=== PATIENT | male | born 1960 | race Two or more races ===

== ENCOUNTER 2023-01-07 21:04 | Emergency (ER) | payer OTHER ==
[~2023-01-07] VITALS: Ht 167.6 cm; Wt 77.0 kg
[2023-01-07] MEDS ORDERED: ACETAMINOPHEN 325MG TABLET PO ONE (21:45)
[2023-01-07] MEDS ORDERED: TETANUS, DIPHTHERIA, PERTUSSIS VAC/PF 0.5ML (>10YR OLD) IM ONE (21:45)
[2023-01-07] MEDS ORDERED: BACITRACIN 15GM TUBE TOP ONE (21:45)
[2023-01-07] MEDS ORDERED: BACITRACIN ZINC OINT UDPKT TOP NR (23:30)
[2023-01-07] MEDS ORDERED: LIDOCAINE HCL 1% 20ML VIAL (Pyxis) INJ INFIL ONE (23:45)
[2023-01-08] MEDS ORDERED: IBUP-2029 MT (00:48)
[2023-01-08 02:00] VITALS: BP 119/55
== END 2023-01-08 02:29 | disposition home or self-care (01) ==
LOC: ER 21:04
DX: S52.511A Displaced fracture of right radial styloid process, initial encounter for closed fracture (principal); S63.295A Dislocation of distal interphalangeal joint of left ring finger, initial encounter; S00.83XA Contusion of other part of head, initial encounter; M25.561 Pain in right knee; I10 Essential (primary) hypertension; W17.89XA Other fall from one level to another, initial encounter; Y93.89 Activity, other specified; Y92.520 Airport as the place of occurrence of the external cause; Y99.0 Civilian activity done for income or pay
CPT/HCPCS: 26770; 29125; 70450; 70486; 73110; 73130; 73140; 73560; 90471; 90715; 99285; J3490; Z7610